=== PATIENT | female | born 1965 | race Hispanic/Latino ===

== ENCOUNTER 2017-04-28 13:41 | Outpatient (CLI) | payer MEDICARE ==
--- NOTE | 2017-04-28 15:57 | XRay Report ---
XRAY CHEST TWO VIEWS: 04/28/17 13:41:00 CLINICAL: Chronic cough. COMPARISON: 05/21/10 FINDINGS: Normal heart and pulmonary vasculature. The lungs are normally expanded . An irregular left upper lobe parenchymal scar and otherwise clear lungs. No airspace disease or pleural effusion. A left breast implant has been placed since the prior exam. IMPRESSION: Left upper lobe benign lung scar and otherwise normal.
== END 2017-04-28 13:42 | disposition home or self-care (01) ==
LOC: SPVIMAG 13:41
PROVIDERS: ATTEND Nurse Practitioner
DX: J98.4 Other disorders of lung (principal); R05 Cough; Z98.82 Breast implant status
CPT/HCPCS: 71046

== ENCOUNTER 2017-12-28 10:14 | Outpatient (CLI) | payer MEDICARE ==
--- NOTE | 2017-12-28 11:13 | Cat Scan Report ---
CT HEAD WITHOUT CONTRAST: HISTORY: Multiple sclerosis. TECHNIQUE: Sequential 2.5mm CT images. COMPARISON: none. FINDINGS: Cerebral Parenchyma: Within normal limits. Cerebellum: A 1.3 cm chronic focal infarct is identified in the central [place]. Brainstem: Within normal limits. Ventricles: Normal. Sella: Normal. Extra-axial spaces: Normal. Basal Cisterns: Normal. Intracranial Hemorrhage: None. Midline Shift: None. Calvarium: Normal. Sinuses: Normal. Mastoid Air Cells: Normal. Visualized Orbits: Normal. IMPRESSION: 1.3 cm chronic focal infarct in the [place] near midline. Otherwise, unremarkable noncontrast CT of the brain.
== END 2017-12-28 10:15 | disposition home or self-care (01) ==
LOC: CT 10:14
PROVIDERS: ATTEND Psychiatry & Neurology Neurology
DX: G35 Multiple sclerosis (principal); I10 Essential (primary) hypertension; J44.9 Chronic obstructive pulmonary disease, unspecified; Z87.891 Personal history of nicotine dependence; Z90.89 Acquired absence of other organs
CPT/HCPCS: 70450